=== PATIENT | male | born 1980 | race Caucasian/White ===

== ENCOUNTER 2019-12-21 16:51 | Emergency (ER) | payer MEDICAID ==
[~2019-12-21] VITALS: Ht 193 cm; Wt 86.4 kg
[2019-12-21 17:14] VITALS: BP 154/98
[2019-12-21] MEDS ORDERED: LIDOcaine 1% W/epiNEPHrine 1:200,000 10ml vial IJ ONE (17:20)
[2019-12-21] MEDS ORDERED: TETanus/Pertussis (Acell)/Diphther VAC/PF (Tdap-Adult) 0.5ml syringe IMVAC ONE (17:20)
[2019-12-21] MEDS ORDERED: CEPH500C5 PO (17:48)
== END 2019-12-21 18:07 | disposition home or self-care (01) ==
LOC: ER 16:52
DX: S61.512A Laceration without foreign body of left wrist, initial encounter (principal); W45.8XXA Other foreign body or object entering through skin, initial encounter; Y93.89 Activity, other specified; Y92.89 Other specified places as the place of occurrence of the external cause; Y99.9 Unspecified external cause status
CPT/HCPCS: 12001; 90471; 90715; 99283